=== PATIENT | female | born 1995 | race Caucasian/White ===

== ENCOUNTER 2022-06-20 14:18 | Emergency (ER) | payer OTHER, SELFPAY ==
--- NOTE | ~2022-06-20 | XR_ITS ---
EXAMINATION: [id number] INDICATION: Left rib pain TECHNIQUE: A frontal view of the chest and 3 views of the left ribs were obtained. COMPARISON: None. FINDINGS: The lungs are free of acute opacities. No pleural effusion or pneumothorax. The cardiomedia stinal silhouette is normal. No displaced rib fracture is identified. IMPRESSION: 1. No acute cardiopulmonary abnormality or evidence of displaced rib fracture. Reviewed, dictated and finalized at location [facility]
[2022-06-20 14:32] VITALS: BP 112/72; PULSE 82; RESP 16; TEMP 36.1; O2SAT 99
--- NOTE | 2022-06-20 14:38 | ED.GENADULT ---
HPI - General Adult General Chief complaint: Unspecified Stated complaint: left side pain Time Seen by Provider: 06/20/22 14:35 Mode of arrival: ambulatory Limitations: no limitations History of Present Illness HPI narrative: 26-year-old female presents with concern for left rib pain. She reports yesterday while playing game she felt a pull in that area, the pain was much worse yesterday, improved somewhat with ibuprofen. She reports pain is exacerbated by sudden movements, flinching, deep breathing. She denies any rash, redness, bruising, swelling. She reports tenderness to the lateral lower rib area. She denies shortness of breath. Denies cough. She denies flank pain, dysuria, frequency, urgency, hematuria, abdominal pain. In a separate. Patient is complaining of some redness and tenderness to the base of the right great toenail that is been going on for more than a year. Reports intermittent. Reports she has an appointment with a associate director of development this month. She denies any drainage, worsening symptoms. MD complaint: Rib pain Related Data Home Medications Medication Instructions Recorded Confirmed norgestimate 0.25 mg-ethinyl 1 tablet PO DAILY 06/20/22 06/20/22 estradiol 35 mcg tablet (Sprintec (28)) Allergies Allergy/AdvReac Type Severity Reaction Status Date / Time No Known Allergies Allergy Verified 06/20/22 14:38 Review of Systems Review of Systems: CONSTITUTIONAL: Denies malaise, chills, sweats, or fever. CARDIOVASCULAR: Denies chest pain, palpitations, or edema. RESPIRATORY: Denies cough or dyspnea. Reports left rib pain GASTROINTESTINAL: Denies abdominal pain, nausea, vomiting, diarrhea GENITOURINARY: Denies dysuria, frequency, urgency, flank pain, or hematuria. SKIN: Denies rash or itching, bruising, swelling. MUSCULOSKELETAL: Denies back pain, joint pain, or myalgia. Reports offered pain NEUROLOGIC: Denies numbness, weakness All systems reviewed & are unremarkable except as noted in HPI and below PMFSH Comments At time of signature, agree with nursing past medical, surgical, social and family history. There is no relevant family history pertinent to the presenting complaint Exam Narrative: GENERAL: Well-appearing, well-nourished, and in no acute distress. HEAD: Normocephalic EYES: PERRLA, sclera clear ENT: Nares clear. Mucous membranes moist. NECK: Supple. CHEST: No respiratory distress. Clear to auscultation. No bony deformities, no asymmetry. Speaks in full sentences. HEART: Regular rate and rhythm. No murmur heard. ABDOMEN: Soft, nontender, nondistended, no palpable masses. EXTREMITIES: Grossly normal range of motion. No edema. Tenderness to palpation on the lateral left rib area SKIN: Warm, dry, no visible rash. Very mild erythema without edema to the base of the 1st digit of the right foot, no fluctuation NEURO: Alert and oriented x3. PSYCH: Normal mood and affect Course Course Emergency Course: Patient is aware of diagnosis, understands and agrees to treatment plan. Anticipatory guidance given. Patient agrees to follow-up as directed and is aware of reasons to seek care at the emergency department. Portions of this record may have been created with voice recognition software Level of Care: Express Care Visit Vital Signs Vital signs: Vital Signs Temperature 97 F L 06/20/22 14:32 Pulse Rate 82 06/20/22 14:32 Respiratory Rate 16 06/20/22 14:32 Blood Pressure 112/72 06/20/22 14:32 Pulse Oximetry 99 06/20/22 14:32 Temperature 97 F L 06/20/22 14:32 Pulse Rate 82 06/20/22 14:32 Respiratory Rate 16 06/20/22 14:32 Blood Pressure 112/72 06/20/22 14:32 Pulse Oximetry 99 06/20/22 14:32 Reviewed. Medical Decision Making MDM Narrative Medical decision making narrative: Exam findings and imaging show no acute concerns or changes; patient is non-toxic appearing and is in no distress. Patient is appropriate for outpatient treatment and follow-up
[2022-06-20 14:39] VITALS: BP 112/72; PULSE 82; RESP 16; TEMP 36.1; O2SAT 99
== END 2022-06-20 15:06 | disposition home or self-care (01) ==
PROVIDERS: Emergency Provider Nurse Practitioner
DX: R07.81 Pleurodynia (principal)
CPT/HCPCS: 71101; 99213; G0463